=== PATIENT | female | born 1965 | race Two or more races ===

== ENCOUNTER → 2018-06-18 | Outpatient (CLI) | payer OTHER | END | disposition home or self-care (01) | LOC: CFH 10:09 | PROVIDERS: ATTEND Internal Medicine Cardiovascular Disease | DX: I35.1 Nonrheumatic aortic (valve) insufficiency (principal); R01.1 Cardiac murmur, unspecified; E78.5 Hyperlipidemia, unspecified | CPT/HCPCS: 93306 ==